=== PATIENT | female | born 1990 | race Caucasian/White ===

== ENCOUNTER 2017-12-30 13:54 | Emergency (ER) | payer MEDICAID, OTHER ==
[2017-12-30 13:54] VITALS: BMI 34.5
[2017-12-30 14:03] VITALS: BP 117/83; PULSE 93; RESP 18; TEMP 99; O2SAT 100
--- NOTE | 2017-12-30 14:25 | C.PDOC ---
History Of Present Illness Patient is a 27 y/o female patient presenting to the ED complaining of left low back pain radiating to her left buttock down her posterior and lateral thigh for one day. She reports she had similar symptoms 1 month ago. Symptoms resolved but recurring again with occasional paresthesia to her 3rd, 4th, 5th toe. She denies any trauma/injuries, weakness, incontinence or other symptoms. She states she has pending MRI this week. She notes limited relief with Aleve. RECUR L LBP X 1 DAY. SIM SX 1 MO AGO, RESOLVED NOW RECUR AGAIN. NO TRAUMA. PENDING MRI THIS WEEK. L BUTTOCK RADIATION POST/LAT THIGH. +OCC PARESTHESIA L 3, 4,5 TOE. DENIES WEAKNESS, OTHER SX. LIMITED RELIEF W ALEVE. EXAM MILD DIST NONTOXIC BACK LIMTIED ROM DUE TO PAIN NONTEND NEURO INTACT SKIN WNL REMAINDER NEG Time Seen by Provider: 12/30/17 14:17 Chief Complaint (Nursing): Back Pain History Per: Patient History/Exam Limitations: no limitations Onset/Duration Of Symptoms: Days Current Symptoms Are (Timing): Still Present Past Medical History Reviewed: Historical Data, Nursing Documentation, Vital Signs Vital Signs: Last Vital Signs Temp 99 F 12/30/17 13:57 Pulse 93 H 12/30/17 13:57 Resp 18 12/30/17 13:57 BP 117/83 12/30/17 13:57 Pulse Ox 100 12/30/17 14:48 - Medical History PMH: No Chronic Diseases Surgical History: No Surg Hx - [facility] Procedures LOW CERVICAL (02/06/14) Family History: States: No Known Family Hx - Social History Hx Tobacco Use: No Hx Alcohol Use: No Hx Substance Use: No - Immunization History Hx Influenza Vaccination: No Review Of Systems Except As Marked, All Systems Reviewed And Found Negative. Constitutional: Negative for: Fever, Chills Gastrointestinal: Negative for: Nausea, Vomiting, Diarrhea Musculoskeletal: Positive for: Back Pain (Left lower back pain radiating to his left buttock down his posterior/lateral thigh ) Neurological: Positive for: Other (+OCC PARESTHESIA L 3,4,5 TOE). Negative for : Weakness Physical Exam - Physical Exam Appears: Non-toxic, Other (Mild distress) Head: Atraumatic, Normacephalic Eye(s): bilateral: Normal Inspection Oral Mucosa: Moist Neck: Normal ROM, Supple Chest: Symmetrical Cardiovascular: Rhythm Regular Respiratory: Normal Breath Sounds, No Rales, No Rhonchi, No Wheezing Back: No CVA Tenderness, No Vertebral Tenderness, Decreased ROM (Limited ROM due to pain ), No Paraspinal Tenderness Extremity: Normal ROM Neurological/Psych: Oriented x3, Normal Speech, Normal Cognition, Normal Sensation Gait: Steady ED Course And Treatment O2 Sat by Pulse Oximetry: 100 (RA) Pulse Ox Interpretation: Normal Progress Note: Patient given Decadron Inj in ED. Patient reports feeling better. Patient given Rx for Flexeril, Neurontin and Motrin. Patient instructed to follow with PMD. Disposition Counseled Patient/Family Regarding: Diagnosis, Need For Followup, Rx Given - Disposition Referrals: YOUR,PMD [Other] Disposition: HOME/ ROUTINE Disposition Time: 14:24 Condition: IMPROVED Additional Instructions: /START NEURONTIN ON 12/31 Prescriptions: Cyclobenzaprine [Flexeril] 10 mg PO TID #15 tab Gabapentin [Neurontin] 300 mg PO TID #30 cap Ibuprofen [Motrin] 600 mg PO Q6 #30 tab Instructions: Sciatica (DC) Forms: [employer] (Maldivian) - Clinical Impression Clinical Impression: Sciatica - Scribe Statement The provider has reviewed the documentation as recorded by the Scribe Emilee Wilson All medical record entries made by the Liliyaibchrista were at my direction and personally dictated by me. I have reviewed the chart and agree that the record accurately reflects my personal performance of the history, physical exam, medical decision making, and the department course for this patient. I have also personally directed, reviewed, and agree with the discharge instructions and disposition.
== END 2017-12-30 14:37 | disposition home or self-care (01) ==
LOC: C.ER 13:54
DX: M54.30 Sciatica, unspecified side (principal)
CPT/HCPCS: 99283; J8540